=== PATIENT | female | born 1990 | race Caucasian/White ===

== ENCOUNTER 2017-12-14 08:23 | Emergency (ER) | payer MEDICAID | END 2017-12-14 09:16 | disposition home or self-care (01) | LOC: D.ER 08:23 | DX: K02.9 Dental caries, unspecified (principal); K08.89 Other specified disorders of teeth and supporting structures ==

== ENCOUNTER 2018-07-17 16:36 | Emergency (ER) | payer SELFPAY ==
[~2018-07-17] VITALS: Ht 154.9 cm; Wt 44.5 kg
[2018-07-17 16:37] VITALS: BP 111/69; Ht 154.9 cm; Wt 44.5 kg
[2018-07-17 17:11] LABS: BASOPHILS 0.5 % (0-2); EOSINOPHILS 1.9 % (0-7); HEMATOCRIT 40.4 % (36.0-48.0); HEMOGLOBIN 14.3 g/dL (12-16); IMMATURE GRANULOCYTES 0.1 % (0-5); LYMPHOCYTES 30.2 % (15-50); MCH 31.6 pg (26.0-34.0); MCHC 35.4 g/dL (31.0-37.0); MCV 89.4 fL (80.0-100.0); MEAN PLATELET VOLUME 11.5 fL (7.4-10.4); MONOCYTES 6.9 % (2-11); NEUTROPHILS 60.4 % (40-80); PLATELET COUNT 217 10x3/uL (130-400); RBC 4.52 10x6/uL (4.00-5.40); RDW 12.4 % (11.5-14.5); WBC 8.6 10x3/uL (4.8-10.8)
[2018-07-17 17:33] LABS: APPEARANCE CLEAR (CLEAR); BILIRUBIN NEGATIVE (NEGATIVE); COLOR YELLOW (YELLOW); GLUCOSE NEGATIVE (NEGATIVE); KETONE NEGATIVE (NEGATIVE); NITRITE NEGATIVE (NEGATIVE); PROTEIN NEGATIVE (NEGATIVE); UROBILINOGEN NORMAL (NORMAL)
[2018-07-17 17:35] LABS: ALBUMIN 4.2 g/dL (3.4-5.0); ALKALINE PHOSPHATASE 40 U/L (46-116); ALT (SGPT) 13 U/L (10-68); BILIRUBIN - TOTAL 0.64 mg/dL (0.2-1.3); CALC OSMOLALITY 278 mosm/kg (275-300); CALCIUM 9.2 mg/dL (8.5-10.1); CARBON DIOXIDE 23.6 mmol/L (21.0-32.0); CHLORIDE - SERUM 104 mmol/L (98-107); CREATININE - SERUM 0.4 mg/dL (0.6-1.3); GLUCOSE 102 mg/dL (74-106); POTASSIUM - SERUM 4.5 mmol/L (3.5-5.1); PROTEIN - SERUM 7.7 g/dL (6.4-8.2); SODIUM 140 mmol/L (136-145); UREA NITROGEN 12 mg/dL (7-18); eGFR NON AFRICAN AMERICAN > 90 mL/min (90-120)
[2018-07-17 17:35] LABS: BACTERIA FEW /hpf (NONE SEEN); EPITHELIAL CELLS 0-5 /hpf (0-5); RED CELLS - URINE 0-5 /hpf (0-5); WHITE CELLS - URINE 0-5 /hpf (0-5)
== END 2018-07-17 18:49 | disposition left against medical advice (07) ==
LOC: D.ER 16:36
PROVIDERS: Family Medicine Adult Medicine
DX: M62.830 Muscle spasm of back (principal)

== ENCOUNTER 2018-11-12 13:22 | Emergency (ER) | payer MEDICAID ==
[~2018-11-12] VITALS: Ht 154.9 cm; Wt 45.0 kg
[2018-11-12 13:26] VITALS: Ht 154.9 cm; Wt 45.0 kg
[2018-11-12] MEDS ORDERED: TALWIN NX1 TAB PO (14:14)
[2018-11-12] MEDS ORDERED: VOLTAREN75 MG PO (14:14)
[2018-11-12 14:52] VITALS: BP 89/49
== END 2018-11-12 14:53 | disposition home or self-care (01) ==
LOC: D.ER 13:22
DX: R07.89 Other chest pain (principal)

== ENCOUNTER 2019-03-10 19:02 | Emergency (ER) | payer MEDICAID ==
[~2019-03-10] VITALS: Ht 154.9 cm; Wt 50.0 kg
[~2019-03-10 19:02] MED LIST: TALWIN NX1 TAB PO; VOLTAREN75 MG PO
[2019-03-10 19:10] VITALS: Ht 154.9 cm; Wt 50.0 kg
[2019-03-10] MEDS ORDERED: ROBAXIN500 MG PO (19:11)
[2019-03-10] MEDS ORDERED: KLONOPIN1 MG PO (19:12)
[2019-03-10 19:36] LABS: BASOPHILS 0.3 % (0-2); EOSINOPHILS 3.1 % (0-7); HEMATOCRIT 36.1 % (36.0-48.0); HEMOGLOBIN 12.5 g/dL (12-16); IMMATURE GRANULOCYTES 0.1 % (0-5); LYMPHOCYTES 44.9 % (15-50); MCH 30.2 pg (26.0-34.0); MCHC 34.6 g/dL (31.0-37.0); MCV 87.2 fL (80.0-100.0); MEAN PLATELET VOLUME 11.1 fL (7.4-10.4); MONOCYTES 7.3 % (2-11); NEUTROPHILS 44.3 % (40-80); PLATELET COUNT 234 10x3/uL (130-400); RBC 4.14 10x6/uL (4.00-5.40); RDW 12.3 % (11.5-14.5); WBC 6.9 10x3/uL (4.8-10.8)
[2019-03-10 20:01] LABS: ALBUMIN 3.7 g/dL (3.4-5.0); ALKALINE PHOSPHATASE 50 U/L (46-116); ALT (SGPT) 32 U/L (10-68); BILIRUBIN - TOTAL 0.27 mg/dL (0.2-1.3); CALC OSMOLALITY 276 mosm/kg (275-300); CALCIUM 8.3 mg/dL (8.5-10.1); CARBON DIOXIDE 27.1 mmol/L (21.0-32.0); CHLORIDE - SERUM 105 mmol/L (98-107); CREATININE - SERUM 0.6 mg/dL (0.6-1.3); GLUCOSE 89 mg/dL (74-106); POTASSIUM - SERUM 3.5 mmol/L (3.5-5.1); PROTEIN - SERUM 7.3 g/dL (6.4-8.2); SODIUM 140 mmol/L (136-145); UREA NITROGEN 10 mg/dL (7-18); eGFR NON AFRICAN AMERICAN > 90 mL/min (90-120)
[2019-03-10 20:08] LABS: APPEARANCE CLEAR (CLEAR); BILIRUBIN NEGATIVE (NEGATIVE); COLOR YELLOW (YELLOW); GLUCOSE NEGATIVE (NEGATIVE); HCG URINE NEGATIVE (NEGATIVE); KETONE NEGATIVE (NEGATIVE); NITRITE NEGATIVE (NEGATIVE); PROTEIN TRACE mg/dL (NEGATIVE); UROBILINOGEN NORMAL (NORMAL)
[2019-03-10 20:10] LABS: BACTERIA FEW /hpf (NONE SEEN)
[2019-03-10 20:12] LABS: MUCUS <1+ /lpf (NONE SEEN)
[2019-03-10] MEDS ORDERED: HYDROCODONE-A1 UDTA2 PO (23:10)
[2019-03-10 23:49] VITALS: BP 101/71
[2019-03-16] MEDS ORDERED: ZYPREXA5 MG PO (15:25)
== END 2019-03-10 23:49 | disposition home or self-care (01) ==
LOC: D.ER 19:02
PROVIDERS: Family Medicine
DX: N83.202 Unspecified ovarian cyst, left side (principal); R10.2 Pelvic and perineal pain

== ENCOUNTER 2019-03-17 09:38 | Day surgery (SDC) | payer MEDICAID ==
[2019-03-16 15:54] LABS: BASOPHILS 0.6 % (0-2); HEMATOCRIT 36.6 % (36.0-48.0); IMMATURE GRANULOCYTES 0.2 % (0-5); LYMPHOCYTES 39.9 % (15-50); MCH 30.5 pg (26.0-34.0); MCHC 35.5 g/dL (31.0-37.0); MCV 85.9 fL (80.0-100.0); MEAN PLATELET VOLUME 10.9 fL (7.4-10.4); MONOCYTES 5.8 % (2-11); NEUTROPHILS 51.5 % (40-80); PLATELET COUNT 211 10x3/uL (130-400); RBC 4.26 10x6/uL (4.00-5.40); RDW 12.4 % (11.5-14.5); WBC 6.5 10x3/uL (4.8-10.8)
[2019-03-16 16:23] LABS: CALC OSMOLALITY 277 mosm/kg (275-300); CARBON DIOXIDE 26.6 mmol/L (21.0-32.0); CHLORIDE - SERUM 104 mmol/L (98-107); CREATININE - SERUM 0.4 mg/dL (0.6-1.3); GLUCOSE 95 mg/dL (74-106); POTASSIUM - SERUM 3.7 mmol/L (3.5-5.1); SODIUM 140 mmol/L (136-145); UREA NITROGEN 9 mg/dL (7-18); eGFR NON AFRICAN AMERICAN > 90 mL/min (90-120)
[~2019-03-17] VITALS: Ht 154.9 cm; Wt 50.3 kg
[~2019-03-17 09:38] MED LIST changes: +HYDROCODONE-A1 UDTA2 PO; +KLONOPIN1 MG PO; +ROBAXIN500 MG PO; +ZYPREXA5 MG PO
[2019-03-17 10:06] LABS: HCG URINE NEGATIVE (NEGATIVE)
[2019-03-17 10:14] VITALS: BP 103/60; Ht 154.9 cm; Wt 50.3 kg
--- NOTE | 2019-05-04 17:17 | OP ---
PATIENT NAME: BIRD KELSEY MEDICAL RECORD: [id number] :89 LOCATION:[facility] ADMISSION DATE: SURGEON: AZAEL JUAREZ MD DATE OF OPERATION: 03/17/2019 PREOPERATIVE DIAGNOSIS: Pelvic mass. POSTOPERATIVE DIAGNOSES: 1. Pelvic mass. 2. Active endometriosis. PROCEDURE PERFORMED: 1. Diagnostic laparoscopy. 2. Cystectomy. PRIMARY SURGEON: Azael Juarez MD ROOF TRUSS DETAILER: Dr. Ashley. ANESTHESIA: General. FINDINGS: Approximately 7 cm cystic mass located on the left ovary. A powder burn lesion in the left cul-de-sac. Right ovary, both tubes, and uterus unremarkable. SPECIMENS REMOVED: Cyst wall and capsule of left ovary. SPECIMEN DISPOSITION: Pathology. ESTIMATED BLOOD LOSS: Minimal. FLUIDS: 1 liter lactated Ringer. URINE OUTPUT: Quantity sufficient void prior to this procedure. COMPLICATIONS: None. DRAINS: None. INDICATIONS: The patient is a 28-year-old female with a 7 cm cyst on ultrasound. The patient has had intermittent intense pain and is considered for diagnostic laparoscopy, possible cystectomy, and any indicated procedure. DESCRIPTION OF PROCEDURE: After informed consent was assured, the patient was taken to the operating room where anesthetic is obtained. With the patient supine on the table, the patient was prepped and draped. An incision was made at the umbilicus to accommodate a 5-mm trocar. This trocar was inserted without difficulty and pneumoperitoneum developed. With the patient in Trendelenburg position, the bowel swept free of the pelvis through accessory port placed in the right lower quadrant. Other accessory ports were placed on the left side. Through the right-sided port, graspers inserted in the pelvis. The hilum of the ovary held fast. Using monopolar cautery, the capsule was opened. Upon opening the cyst clear fluid is observed and removed from the pelvis. Cyst wall and capsule was now excised and OPERATIVE REPORT [id number] BIRD KELSEY sent for pathology assessment. The pelvis was irrigated, irrigant removed. Inspection of the pelvis reveals active endometriosis lesion in the cul-de-sac. What was visualized to be abdominal anatomy is unremarkable. The pneumoperitoneum was released as accessory trocars were removed. The primary trocar was now removed and all sites closed with a subcuticular stitch and Dermabond applied. Sponge, lap, and needle counts correct times 2. The patient went to the recovery area in stable condition. TRANSINT:[id number] Voice Confirmation ID: [id number] DOCUMENT ID: [id number] AZAEL JUAREZ MD at 1717 CC: [id number] DICTATION DATE: 04/27/1928 CALL OR CONTACT CENTRE MANAGER: 04/27/19 1022 [facility] 03/17/19 [place] [id number] [place] [id number]
== END 2019-03-17 15:28 | disposition home or self-care (01) ==
LOC: D.OPS 09:38 → D.PAN 12:00 → D.OPS 15:28
PROVIDERS: ATTEND Obstetrics & Gynecology
DX: R19.00 Intra-abdominal and pelvic swelling, mass and lump, unspecified site (principal); N80.9 Endometriosis, unspecified; Z01.812 Encounter for preprocedural laboratory examination

== ENCOUNTER 2019-03-25 12:45 | Emergency (ER) | payer MEDICAID ==
[~2019-03-25] VITALS: Ht 154.9 cm; Wt 50.5 kg
[2019-03-25 12:49] VITALS: Ht 154.9 cm; Wt 50.5 kg
[2019-03-25 14:15] LABS: BASOPHILS 0.3 % (0-2); EOSINOPHILS 2.6 % (0-7); HEMATOCRIT 34.9 % (36.0-48.0); HEMOGLOBIN 12.3 g/dL (12-16); IMMATURE GRANULOCYTES 0.1 % (0-5); LYMPHOCYTES 29.6 % (15-50); MCH 30.3 pg (26.0-34.0); MCHC 35.2 g/dL (31.0-37.0); MONOCYTES 6.8 % (2-11); NEUTROPHILS 60.6 % (40-80); PLATELET COUNT 211 10x3/uL (130-400); RBC 4.06 10x6/uL (4.00-5.40); RDW 12.1 % (11.5-14.5)
[2019-03-25 14:39] LABS: APPEARANCE CLEAR (CLEAR); COLOR YELLOW (YELLOW)
[2019-03-25 14:40] LABS: BILIRUBIN NEGATIVE (NEGATIVE); GLUCOSE NEGATIVE (NEGATIVE); KETONE NEGATIVE (NEGATIVE); NITRITE NEGATIVE (NEGATIVE); PROTEIN NEGATIVE (NEGATIVE); RED CELLS - URINE NONE SEEN /hpf (0-5); UROBILINOGEN NORMAL (NORMAL)
[2019-03-25] MEDS ORDERED: ULTRAM50 MG PO (15:43)
[2019-03-25 16:09] VITALS: BP 102/68
== END 2019-03-25 16:10 | disposition home or self-care (01) ==
LOC: D.ER 12:45
PROVIDERS: Emergency Medicine
DX: R10.2 Pelvic and perineal pain (principal)

== ENCOUNTER 2019-06-05 09:55 | Day surgery (SDC) | payer MEDICAID ==
[2019-06-02 09:44] LABS: BASOPHILS 0.3 % (0-2); EOSINOPHILS 2.7 % (0-7); HEMATOCRIT 40.7 % (36.0-48.0); HEMOGLOBIN 13.5 g/dL (12-16); IMMATURE GRANULOCYTES 0.1 % (0-5); LYMPHOCYTES 29.9 % (15-50); MCH 30.7 pg (26.0-34.0); MCHC 33.2 g/dL (31.0-37.0); MCV 92.5 fL (80.0-100.0); MEAN PLATELET VOLUME 10.9 fL (7.4-10.4); MONOCYTES 7.9 % (2-11); NEUTROPHILS 59.1 % (40-80); PLATELET COUNT 243 10x3/uL (130-400); RDW 12.9 % (11.5-14.5); WBC 7.7 10x3/uL (4.8-10.8)
[~2019-06-05] VITALS: Ht 154.9 cm; Wt 52.2 kg
[~2019-06-05 09:55] MED LIST changes: +TYLENOL #4 W/CO1 TAB PO; +ULTRAM50 MG PO
[2019-06-05 10:23] VITALS: BP 96/59; Ht 154.9 cm; Wt 52.2 kg
[2019-06-05 10:36] LABS: HCG URINE NEGATIVE (NEGATIVE)
--- NOTE | 2019-06-05 16:18 | NUR ---
1615 ASSISTED UP TO BATHROOM AND VOIDED MODERATE AMT.
--- NOTE | 2019-06-05 16:31 | NUR ---
1630 TOLERATING LIQUIDS AND IV REMOVED
--- NOTE | 2019-06-08 07:14 | OP ---
PATIENT NAME: BIRD KELSEY MEDICAL RECORD: [id number] :89 LOCATION:[facility] ADMISSION DATE: SURGEON: AZAEL JUAREZ MD DATE OF OPERATION: 06/05/2019 PREOPERATIVE DIAGNOSIS: Ovarian mass. POSTOPERATIVE DIAGNOSIS: Left ovarian cyst. PROCEDURE: 1. Diagnostic laparoscopy. 2. Laparoscopic left cystectomy. SURGEON: Azael Juarez MD ANESTHESIOLOGIST: Dr. Tinsley. FENCE SETTER: Warren Weber. ANESTHESIA: General. FINDINGS: Approximately 6 cm simple appearing cyst contained on the left ovary. Right ovary is unremarkable. Both tubes are unremarkable. Uterus is slightly enlarged now and without evidence of mass or irregularity to the contour. SPECIMENS REMOVED: Left ovarian cyst and cyst wall. SPECIMEN DISPOSITION: Pathology. ESTIMATED BLOOD LOSS: Minimal. FLUIDS: 800 cc lactated Ringer's. URINE OUTPUT: Quantity sufficient void prior to this procedure. COMPLICATIONS: None. DRAINS: None. INDICATIONS: The patient is a 28-year-old female with pelvic pressure and pain. The patient's old workup includes an ultrasound, which shows approximately 6-7 cm cyst, simple appearing cyst, in the left adnexa. The patient is consented for diagnostic laparoscopy, cystectomy, and any indicated procedure. DESCRIPTION OF PROCEDURE: After informed consent was assured, the patient was taken to the operating room where anesthetic was obtained without difficulty. The patient is now prepped and draped in the usual sterile fashion. An incision was made in the umbilicus to accommodate a 5-mm trocar was inserted without difficulty and pneumoperitoneum developed. Accessory ports are now placed in the midline and right lower quadrant. Through the midline port, a grasper was inserted in the left ovarian hilum, it is grasped and the cyst rotated into view. With monopolar setting of 20 kumari, the surface of the cyst and cyst wall was cauterized. The EndoShears were now used to open this cauterized space. The straw fluid contents of the cyst are suction free off the pelvis and the mass. Elevating the cyst wall with a grasper from the midline using EndoShears, OPERATIVE REPORT [id number] BIRD KELSEY the cyst capsule and cyst wall were now completely removed from its attachments to the ovary. The edges of this dissection are cauterized. After the assistance of the cyst capsule and wall has been removed from the pelvis, Interceed was placed over the operative field. The pelvis has been irrigated and irrigant removed. All operative sites are hemostatic. Pneumoperitoneum was released as the accessory trocars were removed. Primary trocars removed after release of the pneumoperitoneum. All sites were closed with a subcuticular stitch and Dermabond. Sponge, lap, needle counts were correct times 2. TRANSINT:[id number] Voice Confirmation ID: [id number] DOCUMENT ID: [id number] AZAEL JUAREZ MD at 0714 CC: [id number] DICTATION DATE: 06/05/19 1520 ROUNDHOUSE FIRER/FIREMAN: 06/05/19 2139 [facility] 06/05/19 [facility] [address] [place] [address]
== END 2019-06-05 16:53 | disposition home or self-care (01) ==
LOC: D.OPS 09:55 → D.PAN 11:00 → D.OPS 12:00 → D.PAN 12:20 → D.OPS 16:53
PROVIDERS: ATTEND Obstetrics & Gynecology
DX: N83.202 Unspecified ovarian cyst, left side (principal)

== ENCOUNTER → 2019-11-09 11:56 | Outpatient (CLI) | payer MEDICAID ==
[2019-06-05 10:23] VITALS: BMI 21.7
== END | disposition home or self-care (01) ==
LOC: D.RAD 11:56
PROVIDERS: ATTEND Nurse Practitioner Family
DX: R05 Cough (principal)

== ENCOUNTER 2019-12-24 12:25 | Emergency (ER) | payer MEDICAID ==
[~2019-12-24] VITALS: Ht 154.9 cm; Wt 68.2 kg
[2019-12-24 12:30] VITALS: Ht 154.9 cm; Wt 68.2 kg
[2019-12-24 12:43] LABS: HEMATOCRIT 39.9 % (36.0-48.0); MCH 29.1 pg (26.0-34.0); MCHC 32.6 g/dL (31.0-37.0); MCV 89.3 fL (80.0-100.0); MEAN PLATELET VOLUME 10.5 fL (7.4-10.4); NEUTROPHILS 52.5 % (40-80); PLATELET COUNT 228 10x3/uL (130-400); RBC 4.47 10x6/uL (4.00-5.40); RDW 12.7 % (11.5-14.5); WBC 7.6 10x3/uL (4.8-10.8)
[2019-12-24 12:44] LABS: BILIRUBIN NEGATIVE (NEGATIVE); GLUCOSE NEGATIVE (NEGATIVE); KETONE NEGATIVE (NEGATIVE); NITRITE NEGATIVE (NEGATIVE); UROBILINOGEN NORMAL (NORMAL)
[2019-12-24 12:47] LABS: WHITE CELLS - URINE 0-5 /hpf (NEGATIVE)
[2019-12-24 12:49] LABS: BACTERIA FEW /hpf (NEGATIVE); RED CELLS - URINE 0-5 /hpf (0-5)
[2019-12-24 12:50] LABS: HCG URINE NEGATIVE (NEGATIVE)
[2019-12-24 12:55] LABS: CALC OSMOLALITY 274 mosm/kg (275-300); CALCIUM 8.8 mg/dL (8.5-10.1); CARBON DIOXIDE 24.8 mmol/L (21.0-32.0); CHLORIDE - SERUM 104 mmol/L (98-107); CREATININE - SERUM 0.5 mg/dL (0.6-1.3); GLUCOSE 104 mg/dL (74-106); SODIUM 138 mmol/L (136-145); UREA NITROGEN 10 mg/dL (7-18); eGFR NON AFRICAN AMERICAN > 90 mL/min (90-120)
[2019-12-24 13:09] LABS: ALBUMIN 3.7 g/dL (3.4-5.0); ALKALINE PHOSPHATASE 77 U/L (30-120); ALT (SGPT) 17 U/L (10-68); AMYLASE - SERUM 44 U/L (25-115); BILIRUBIN - TOTAL 0.52 mg/dL (0.2-1.3); LIPASE 83 U/L (73-393); PROTEIN - SERUM 7.5 g/dL (6.4-8.2)
[2019-12-24 13:12] LABS: TROPONIN-I < 0.017 ng/mL (0.000-0.060)
[2019-12-24] MEDS ORDERED: ACETAMINOPHEN500 M1 PO (16:51)
[2019-12-24] MEDS ORDERED: IBUPROFEN800 MG PO (16:51)
[2019-12-24] MEDS ORDERED: CYCLOBENZAPRINE10 MG PO (16:51)
[2019-12-24] MEDS ORDERED: MACROBID100 MG PO (16:51)
[2019-12-24] MEDS ORDERED: KEFLEX500 MG PO (16:51)
[2019-12-24 17:16] VITALS: BP 122/63
== END 2019-12-24 17:17 | disposition home or self-care (01) ==
LOC: D.ER 12:25
PROVIDERS: Family Medicine
DX: R10.30 Lower abdominal pain, unspecified (principal); N39.0 Urinary tract infection, site not specified

== ENCOUNTER 2020-01-23 11:39 | Emergency (ER) | payer MEDICAID ==
[~2020-01-23] VITALS: Ht 154.9 cm; Wt 68.2 kg
[~2020-01-23 11:39] MED LIST changes: +ACETAMINOPHEN500 M1 PO; +CYCLOBENZAPRINE10 MG PO; +IBUPROFEN800 MG PO; +KEFLEX500 MG PO; +MACROBID100 MG PO
[2020-01-23 11:50] VITALS: Ht 154.9 cm; Wt 68.2 kg
[2020-01-23] MEDS ORDERED: CELEXA10 MG PO (11:51)
[2020-01-23] MEDS ORDERED: BUPRENORPHINE HC8 MG SL (11:52)
[2020-01-23] MEDS ORDERED: ZOFRAN ODT4 MG/UDTAB PO (12:21)
[2020-01-23 13:18] VITALS: BP 105/63
== END 2020-01-23 13:18 | disposition home or self-care (01) ==
LOC: D.ER 11:39
DX: F11.23 Opioid dependence with withdrawal (principal); R11.2 Nausea with vomiting, unspecified

== ENCOUNTER 2020-02-05 15:57 | Emergency (ER) | payer MEDICAID ==
[~2020-02-05] VITALS: Ht 154.9 cm; Wt 68.2 kg
[~2020-02-05 15:57] MED LIST changes: +BUPRENORPHINE HC8 MG SL; +CELEXA10 MG PO; +ZOFRAN ODT4 MG/UDTAB PO
[2020-02-05 16:06] VITALS: Ht 154.9 cm; Wt 68.2 kg
[2020-02-05 16:51] LABS: BILIRUBIN NEGATIVE (NEGATIVE); GLUCOSE NEGATIVE (NEGATIVE); HCG URINE NEGATIVE (NEGATIVE); KETONE NEGATIVE (NEGATIVE); NITRITE NEGATIVE (NEGATIVE); UROBILINOGEN NORMAL (NORMAL)
[2020-02-05 16:53] LABS: BASOPHILS 0.2 % (0-2); EOSINOPHILS 0.9 % (0-7); HEMATOCRIT 37.9 % (36.0-48.0); HEMOGLOBIN 12.5 g/dL (12-16); IMMATURE GRANULOCYTES 0.2 % (0-5); LYMPHOCYTES 36.2 % (15-50); MCH 29.3 pg (26.0-34.0); MCV 88.8 fL (80.0-100.0); MONOCYTES 5.4 % (2-11); NEUTROPHILS 57.1 % (40-80); PLATELET COUNT 251 10x3/uL (130-400); RBC 4.27 10x6/uL (4.00-5.40); RDW 12.6 % (11.5-14.5); WBC 9.6 10x3/uL (4.8-10.8)
[2020-02-05 16:53] LABS: BACTERIA MODERATE /hpf (NEGATIVE); RED CELLS - URINE OCC /hpf (0-5); WHITE CELLS - URINE 0-5 /hpf (NEGATIVE)
[2020-02-05 17:08] LABS: CALC OSMOLALITY 282 mosm/kg (275-300); CALCIUM 9.1 mg/dL (8.5-10.1); CARBON DIOXIDE 27.7 mmol/L (21.0-32.0); CHLORIDE - SERUM 106 mmol/L (98-107); CREATININE - SERUM 0.6 mg/dL (0.6-1.3); GLUCOSE 91 mg/dL (74-106); POTASSIUM - SERUM 3.4 mmol/L (3.5-5.1); SODIUM 143 mmol/L (136-145); UREA NITROGEN 7 mg/dL (7-18); eGFR NON AFRICAN AMERICAN > 90 mL/min (90-120)
[2020-02-05 17:17] LABS: ALBUMIN 3.8 g/dL (3.4-5.0); ALKALINE PHOSPHATASE 61 U/L (30-120); ALT (SGPT) 28 U/L (10-68); AMYLASE - SERUM 51 U/L (25-115); BILIRUBIN - TOTAL 0.37 mg/dL (0.2-1.3); LIPASE 136 U/L (73-393); PROTEIN - SERUM 7.3 g/dL (6.4-8.2); TROPONIN-I < 0.017 ng/mL (0.000-0.060)
[2020-02-05] MEDS ORDERED: ZOFRAN ODT4 MG/UDTAB PO (19:08)
[2020-02-05] MEDS ORDERED: KEFLEX500 MG PO (19:08)
[2020-02-05 19:52] VITALS: BP 121/77
== END 2020-02-05 19:52 | disposition home or self-care (01) ==
LOC: D.ER 15:57
PROVIDERS: Family Medicine
DX: N39.0 Urinary tract infection, site not specified (principal); R11.2 Nausea with vomiting, unspecified; N83.202 Unspecified ovarian cyst, left side; N83.201 Unspecified ovarian cyst, right side; R10.31 Right lower quadrant pain

== ENCOUNTER 2020-02-10 16:31 | Emergency (ER) | payer MEDICAID ==
[~2020-02-10] VITALS: Ht 154.9 cm; Wt 68.2 kg
[2020-02-10 16:40] VITALS: Ht 154.9 cm; Wt 68.2 kg
[2020-02-10 16:56] LABS: BILIRUBIN NEGATIVE (NEGATIVE); GLUCOSE NEGATIVE (NEGATIVE); KETONE SMALL mg/dL (NEGATIVE); NITRITE NEGATIVE (NEGATIVE); SPECIFIC GRAVITY 1.005 (1.005-1.020); UROBILINOGEN NORMAL (NORMAL)
[2020-02-10 17:04] LABS: BASOPHILS 0.2 % (0-2); EOSINOPHILS 0.2 % (0-7); HEMATOCRIT 40.8 % (36.0-48.0); HEMOGLOBIN 13.5 g/dL (12-16); IMMATURE GRANULOCYTES 0.1 % (0-5); LYMPHOCYTES 33.3 % (15-50); MCH 29.4 pg (26.0-34.0); MCHC 33.1 g/dL (31.0-37.0); MCV 88.9 fL (80.0-100.0); MEAN PLATELET VOLUME 10.8 fL (7.4-10.4); MONOCYTES 7.1 % (2-11); NEUTROPHILS 59.1 % (40-80); PLATELET COUNT 276 10x3/uL (130-400); RBC 4.59 10x6/uL (4.00-5.40); RDW 12.9 % (11.5-14.5); WBC 8.7 10x3/uL (4.8-10.8)
[2020-02-10 17:11] LABS: CALC OSMOLALITY 273 mosm/kg (275-300); CALCIUM 9.2 mg/dL (8.5-10.1); CHLORIDE - SERUM 103 mmol/L (98-107); CREATININE - SERUM 0.7 mg/dL (0.6-1.3); GLUCOSE 93 mg/dL (74-106); POTASSIUM - SERUM 3.7 mmol/L (3.5-5.1); SODIUM 138 mmol/L (136-145); UREA NITROGEN 6 mg/dL (7-18); eGFR NON AFRICAN AMERICAN > 90 mL/min (90-120)
[2020-02-10 17:17] LABS: ALBUMIN 4.1 g/dL (3.4-5.0); ALKALINE PHOSPHATASE 65 U/L (30-120); ALT (SGPT) 36 U/L (10-68); BILIRUBIN - TOTAL 0.42 mg/dL (0.2-1.3); PROTEIN - SERUM 7.7 g/dL (6.4-8.2)
[2020-02-10 17:34] LABS: HCG URINE NEGATIVE (NEGATIVE)
[2020-02-10] MEDS ORDERED: LOMOTIL 2.5-0.1 EAC1 PO (18:16)
[2020-02-10] MEDS ORDERED: ZOFRAN ODT4 MG/UDTAB PO (18:16)
[2020-02-10] MEDS ORDERED: FLAGYL500 MG PO (18:16)
[2020-02-10] MEDS ORDERED: LEVOFLOXACIN500 MG PO (18:16)
[2020-02-10 18:24] VITALS: BP 104/70
== END 2020-02-10 18:26 | disposition home or self-care (01) ==
LOC: D.ER 16:31
PROVIDERS: Family Medicine
DX: K52.9 Noninfective gastroenteritis and colitis, unspecified (principal); R11.2 Nausea with vomiting, unspecified

== ENCOUNTER 2020-03-22 07:31 | Day surgery (SDC) | payer MEDICAID ==
[~2020-03-22] VITALS: Ht 154.9 cm; Wt 64.4 kg
[~2020-03-22 07:31] MED LIST changes: +FLAGYL500 MG PO; +LEVOFLOXACIN500 MG PO; +LOMOTIL 2.5-0.1 EAC1 PO
[2020-03-22 07:56] LABS: BASOPHILS 0.4 % (0-2); EOSINOPHILS 3.7 % (0-7); HEMATOCRIT 39.7 % (36.0-48.0); HEMOGLOBIN 12.8 g/dL (12-16); IMMATURE GRANULOCYTES 0.1 % (0-5); LYMPHOCYTES 40.9 % (15-50); MCH 28.7 pg (26.0-34.0); MCHC 32.2 g/dL (31.0-37.0); MEAN PLATELET VOLUME 10.9 fL (7.4-10.4); MONOCYTES 8.7 % (2-11); NEUTROPHILS 46.2 % (40-80); PLATELET COUNT 248 10x3/uL (130-400); RBC 4.46 10x6/uL (4.00-5.40); RDW 12.9 % (11.5-14.5); WBC 6.7 10x3/uL (4.8-10.8)
[2020-03-22 08:26] LABS: CALC OSMOLALITY 269 mosm/kg (275-300); CALCIUM 8.5 mg/dL (8.5-10.1); CARBON DIOXIDE 25.8 mmol/L (21.0-32.0); CHLORIDE - SERUM 103 mmol/L (98-107); CREATININE - SERUM 0.6 mg/dL (0.6-1.3); GLUCOSE 102 mg/dL (74-106); POTASSIUM - SERUM 3.9 mmol/L (3.5-5.1); SODIUM 136 mmol/L (136-145); UREA NITROGEN 8 mg/dL (7-18); eGFR NON AFRICAN AMERICAN > 90 mL/min (90-120)
[2020-03-22 08:28] LABS: HCG SERUM NEGATIVE (NEGATIVE)
[2020-03-22] MEDS ORDERED: HYDROCODON-ACE1 EAC2 PO (09:19)
[2020-03-22 09:21] VITALS: BP 119/74; Ht 154.9 cm; Wt 64.4 kg
--- NOTE | 2020-03-22 12:36 | NUR ---
OPA IN AIRWAY ON ADMIT
--- NOTE | 2020-03-22 15:00 | NUR ---
1430-VSS.NO DISTRESS. DENIES PAIN. NO N/V. TOLERATED SPRITE AND JELLO. REMOVED IV WITH CATH INTACT, DISPOSED INTO SHARPS, COVERED WITH GUAZE, SECURED WITH MEDIPORE TAPE. REVIEWED POST OP INSTRUCTIONS. PT WAS GIVEN FOLLOW UP APPOINTMENT AND PAIN PRESCRIPTION PRIOR TO TODAY. ENCOURAGED TO KEEP FOLLOW UP APPOINTMENT AND TAKE PAIN PRESCRIPTIONS ORDERED. VERBALIZED UNDERSTANDING.
--- NOTE | 2020-03-22 15:00 | NUR ---
1410-AMBULATED TO RESTROOM AND VOIDED WITHOUT COMPLICATIONS. VSS. DERMABOND INTACT TO ABD IN 3 AREAS. DENIES PAIN. NO DISTRESS.
--- NOTE | 2020-03-22 15:03 | NUR ---
1435-ESCORTED OUT VIA W/C BY STAFF WITH SPOUSE AWAITING TO DRIVE HOME.
--- NOTE | 2020-03-23 03:02 | OP ---
PATIENT NAME: BIRD KELSEY MEDICAL RECORD: [id number] :89 LOCATION:.[facility] ADMISSION DATE: SURGEON: AZAEL JUAREZ MD DATE OF OPERATION: 03/22/2020 PREOPERATIVE DIAGNOSES: 1. Pelvic mass. 2. Subacute pelvic pain. POSTOPERATIVE DIAGNOSES: 1. Pelvic mass. 2. Subacute pelvic pain 3. Active endometriosis. 4. Left ovarian cyst. PROCEDURE PERFORMED: 1. Diagnostic laparoscopy. 2. Left cystectomy. 3. Fulguration of endometriosis. SURGEON: Azael Juarez MD CAP MAKER: Wanda Banerjee CRNA ANESTHESIOLOGIST: Dr. Shaw. ANESTHESIA: General. FINDINGS: A 4 cm cyst identified on the left ovary. There is clear straw-colored fluid contained within. There is active, endometriosis identified on the left ovary. Cul-de-sac and ovarian fossae were free of disease bilaterally. SPECIMENS REMOVED: Ovary cyst wall and capsule. SPECIMEN DISPOSITION: Pathology. ESTIMATED BLOOD LOSS: Minimal. FLUID: 700 cc of lactated Ringer's. URINE OUTPUT: 150 cc of clear fluid. COMPLICATIONS: None. DRAINS: None. INDICATIONS: The patient is a 29-year-old female with history of pelvic pain and identified cyst. The patient has been seen in the Emergency Room for increasing pain. She presented to the clinic with pain of 8/10. The patient has been consented for diagnostic laparoscopy and any indicated procedure. DESCRIPTION OF PROCEDURE: After informed consent was assured, the patient was taken to the operating room where anesthetic was obtained. The patient is now prepped and draped in the usual sterile fashion. An incision was made at the OPERATIVE REPORT [id number] BIRD KELSEY umbilicus to accommodate a 5-mm trocar. This trocar was placed and pneumoperitoneum established. With the patient in Trendelenburg and accessory ports now placed 2 breaths above the symphysis in the midline. Through this port, a blunt probe was passed and the bowel swept free of the pelvis with the above findings. What was visualized of the abdominal anatomy is also unremarkable. At this point, a second trocar was now placed 2 fingerbreadths anterior and superior to the anterior superior iliac spine. Through this 5-mm port, graspers inserted in the hilum of the left ovary held fast. Using the Thunderbeat coagulation cutter, the cyst was entered and a portion of the cyst wall and cyst capsule removed. This is removed from the pelvis and sent to pathology. The pelvis was copiously irrigated and irrigant removed. Closure survey of the left ovary reveals active endometriosis on the lateral margin. Thunderbeat coagulation cutter is now passed in from the right lower quadrant port and with the ovary held from the midline at this point, the active endometriosis is fulgurated. After destruction of the endometriosis, the pelvis again is inspected. Adequate hemostasis has been achieved at the site of the cystectomy. Pneumoperitoneum is released as the accessory trocars were removed under direct visualization. The primary trocar was now removed. All sites were closed with a subcuticular stitch and Dermabond applied. Sponge, lap, needle counts were correct times 2. The patient went to the recovery area in stable condition. TRANSINT:[id number] Voice Confirmation ID: [id number] DOCUMENT ID: [id number] AZAEL JUAREZ MD at 0302 CC: [id number] DICTATION DATE: 03/22/20 1315 BRIGADIER: 03/23/20 0027 [facility] 03/22/20 [facility] [address] [place] [address]
== END 2020-03-22 14:35 | disposition home or self-care (01) ==
LOC: D.OPS 07:31
PROVIDERS: ATTEND Obstetrics & Gynecology
DX: R10.2 Pelvic and perineal pain (principal); R19.00 Intra-abdominal and pelvic swelling, mass and lump, unspecified site; N80.9 Endometriosis, unspecified; N83.202 Unspecified ovarian cyst, left side